=== PATIENT | female | born 1980 | race Caucasian/White ===

== ENCOUNTER → 2018-03-23 13:43 | Outpatient (CLI) | payer OTHER, SELFPAY ==
[2018-03-27 10:39] LABS: HPV Reflexed? NOT INDICATED
== END ==
PROVIDERS: Visit Provider Obstetrics & Gynecology
DX: Z12.4 Encounter for screening for malignant neoplasm of cervix (principal)
CPT/HCPCS: 88175; G0145

== ENCOUNTER → 2018-08-22 17:02 | Outpatient (CLI) | payer OTHER, SELFPAY ==
[2018-08-22 20:19] LABS: Chlamydia Trachomatis by PCR Negative (Negative); Neisserai gonorrhoeae by PCR Negative (Negative); Probe Check PASS; Sample Adequacy Control PASS; Specimen Processing Control PASS
== END ==
PROVIDERS: Visit Provider Obstetrics & Gynecology
DX: Z11.3 Encounter for screening for infections with a predominantly sexual mode of transmission (principal)
CPT/HCPCS: 87491; 87591

== ENCOUNTER → 2018-09-23 15:41 | Outpatient (CLI) | payer OTHER, SELFPAY ==
[2018-09-23 17:56] LABS: Absolute Lymphocyte Count 2.23 X10^3/ul (0.83-4.51); Absolute Neutrophil Count 6.7 X10^3/uL (2.0-7.7); Basophil# 0.02 X10^3/uL; Basophil% 0.2 % (0-1); Hematocrit 39.6 % (37-47); Hemoglobin 13.7 g/dl (12.0-15.0); Lymphocyte # 2.23 X10^3/ul (4.0); Lymphocyte % 23.1 % (19-41); Mean Corp Hgb Conc 34.6 g/gl (32-36); Mean Corpuscular Hgb 31.1 pg (27.0-32.0); Mean Corpuscular Volume 89.8 fL (81-99); Monocyte# 0.64 X10^3/uL; Monocyte% 6.6 % (0-10); Neutrophil # 6.66 X10^3/uL (2.7-7.7); Neutrophil % 68.9 % (47-70); Platelet Count 233 K/mm3 (150-450); RBC Distribution Width CV 12.2 % (11.6-14.6); RBC Distribution Width SD 39.5 fl (35.1-43.9); Red Blood Count 4.41 M/mm3 (4.2-5.4); White Blood Count 9.7 K/mm3 (4.4-11.0)
[2018-09-23 17:58] LABS: Color, Urine Yellow (Yellow); Glucose, Dipstick Normal (Normal); Ketone-Dipstick Negative (Negative); Leukocyte Esterase-Dipstick Negative /ul (Negative); Nitrite-Dipstick Negative (Negative); Occult Blood-Urine Negative /ul (Negative); Protein-Dipstick Negative (Negative); Urine Bilirubin Dipstick Negative (Negative); Urine Clarity Clear (Clear); Urine Urobilinogen Normal (Normal)
[2018-09-23 17:59] LABS: POSITIVE COUNT NO; POSITIVE DIFFERENTIAL NO; POSITIVE MORPHOLOGY NO
[2018-09-23 18:11] LABS: Thyroid Stim Hormone (TSH) 1.17 uIU/mL (0.358-3.74)
[2018-09-23 18:53] LABS: HIV - WCH Non-Reactive (Nonreactive)
[2018-09-26 10:36] LABS: HEPATITIS B SURFACE AG Negative (Negative); Hep C Antibodies <0.1 s/co ratio (0.0-0.9)
[2018-09-29 23:52] LABS: Prenatal RPR NONREACTIVE (NONREACTIVE)
--- OUTSIDE RECORDS SUMMARY | 2018-12-28 06:31 | XMS RPT_ITS ---
:1980 Author Organization OHIP Care Team Providers Name Role Phone Nestor Coffey Attending Unavailable PROVIDER, UNKNOWN Referring Unavailable MELVA [facility] Primary Care Unavailable Katerina Hess Attending Unavailable Arely Donaldson Attending Unavailable Katerina Hess Attending Unavailable PROBLEMS PROBLEMS DATE TYPE CONDITION / CODE ATTENDING STATUS SOURCE 09/23/2018 Unknown Z34.81 - Encounter Katerina Hess for supervision of Community other normal Hospital , first Repository trimester / Z34.81(ICD-10) 08/22/2018 Unknown Z11.3 - Encounter Katerina Hess for screening for Community infections with a Hospital predominantly Repository sexual mode of transmission / Z11.3(ICD-10) 04/08/2018 Admitting Liver disease, ChristophNestor tinajero Active [place] N42 Diagnosis unspecified / System K76.9(ICD-10) Repository 04/08/2018 Admitting [facility]ty (change of[facility] Nestor [facility] Diagnosis liver, not System elsewhere Repository classified / K76.0(ICD-10) 03/23/2018 Unknown Z12.4 - Encounter Arely Donaldson Active Gaurav for screening for Community malignant neoplasm [facility] cervix / Repository Z12.4(ICD-10) PROCEDURES PROCEDURES No Procedure Records FoundRESULTS RESULTS URINALYSIS, ROUTINE Collected: 09/23/2018 Status: F Source: GAURAV (DIPSTICK) 3:45 PM [facility] REPOSITORY Order Comment: How was Urine Obtained? Urine, Random TYPE CODE TESTS RESULT OUT OF RANGE REFERENCE UNITS LAB L400.3000 Yellow COLOR Normal Yellow LAB L400.3050 Clear Normal CLARITY Clear LAB L400.3200 Normal mg/dl Normal GLUCOSE, UR Normal LAB L400.3300 Negative mg/dL Normal BILIRUBIN URINE Negative LAB L400.3400 Negative mg/dl Normal KETONE UR Negative LAB L400.3465 1.002-1.030 Normal SP.GR. DIPSTX 1.030 LAB L400.3550 5.0 - 8.0 pH UR Normal 6.0 LAB L400.3600 Negative mg/dl PROT Normal DIPSTX Negative LAB L400.3700 Normal mg/dl Normal UROBILI Normal LAB L400.3750 Negative Normal NITRITE UR Negative LAB L400.3780 Negative /ul Normal OCCULT BLOOD-UR Negative LAB L400.3800 Negative /ul LEUK Normal ESTERASE Negative Performed By: #### L400.2010 #### [facility] [address] [place], [place], [address] CBC W/DIFF, AUTOMATED Collected: 09/23/2018 Status: F Source: [place]ON STATION 3:45 PM [facility] [place] TYPE CODE TESTS RESULT OUT OF RANGE REFERENCE UNITS LAB L100.1000 4.4-11.0 K/mm3 Normal WBC 9.7 LAB L100.1200 4.2-5.4 M/mm3 Normal RBC 4.41 LAB L100.1300 12.0-15.0 g/dl Normal HGB 13.7 LAB L100.1400 37-47 % Normal HCT 39.6 LAB L100.1500 81-99 fL Normal MCV 89.8 LAB L100.1600 27.0-32.0 pg Normal MCH 31.1 LAB L100.1700 32-36 g/gl Normal MCHC 34.6 LAB L100.1810 11.6-14.6 % Normal RDW CV 12.2 LAB L100.1820 35.1-43.9 fl Normal RDW SD 39.5 LAB L100.1900 150-450 K/mm3 Normal PLT 233 LAB L100.2000 6.2-12.0 fl Normal MPV 11.0 LAB L100.2100 47-70 % Normal NEUT% 68.9 LAB L100.2200 19-41 % Normal LY% 23.1 LAB L100.2300 0-10 % Normal MONO% 6.6 LAB L100.2400 0-5 % Normal EO% 1.0 LAB L100.2500 0-1 % Normal BASO% 0.2 LAB L100.2550 0.0-0.9 % Normal IM GRAN % 0.200 Result Comment: IG% - Immature Granulocytes (promyelocytes, myelocytes and metamyelocytes) > 1% indicates that a LEFT SHIFT is Present. LAB L100.2620 2.0-7.7 X10 3/uL Normal Absolute Neut 6.7 LAB L100.2720 0.83-4.51 X10 3/ul Normal Absolute Lymph 2.23 Performed By: #### L100.0100 #### [facility] [address] [place], [address] THYROID STIM HORMONE Collected: 09/23/2018 Status: F Source: IRON STATION (TSH) 3:45 PM [facility] [place] TYPE CODE TESTS RESULT OUT OF RANGE REFERENCE UNITS LAB L501.9520 0.358-3.74 uIU/mL Normal TSH 1.17 Performed By: #### L501.9520 #### [facility] [facility] [place], [place], [id number] T AND S-NO Collected: 09/23/2018 Status: F Source: IRON STATION CHARGE W/PNP 3:45 PM [facility] [place] Order Comment: Reason for Type AND Screen/Red Cells: Surgery? N TYPE CODE TESTS RESULT OUT OF RANGE REFERENCE UNITS LAB B10.0800 A Normal BLOOD POSITIVE TYPE GEL LAB B100.4050 Normal Ab SCREEN NEGATIVE GEL Performed By: #### B100.7550 #### [facility] [address] [facility] [place], [place], [address] RUBELLA IGG Collected: 09/23/2018 Status: F Source: IRON STATION 3:45 PM [facility] [place] TYPE CODE TESTS RESULT OUT OF RANGE REFERENCE UNITS LAB L509.4000 IU/mL Normal Rubella IgG 61.0 Result Comment: Antibody results Interpretation of Immune Status < 5 IU/ml Presumed Non-immune 5 - < 10 IU/ml Equivocal > or = 10 IU/ml Presumed Immune Performed By: #### L509.4000, L3890.6005 #### [facility] [address] [place], [address] HIV - WCH Collected: 09/23/2018 Status: F Source: GAURAV 3:45 PM [facility] [place] TYPE CODE TESTS RESULT OUT OF RANGE REFERENCE UNITS LAB L3890.6005 Nonreactive Normal HIV - [facility] Non-Reactive Performed By: #### L509.4000, L3890.6005 #### [facility] [address] [place], [address] HEPATITIS B SURFACE Collected: 09/23/2018 Status: F Source: GAURAV AG 3:45 PM [facility] [place] TYPE CODE TESTS RESULT OUT OF RANGE REFERENCE UNITS LAB L3100.0400 Negative Normal HB Negative SURF AG Result Comment: Performed at: [facility] [address] [id number] Potline Monitor: Yrody Cleveland PhD, Phone: [phone] Performed By: #### L3100.0390, L3100.0625 #### [facility] (refer to report for specific site) refer to report for address and phone number HEPATITIS C ANTIBODIES Collected: 09/23/2018 Status: F Source: GAURAV 3:45 PM [facility] [place] TYPE CODE TESTS RESULT OUT OF RANGE REFERENCE UNITS LAB L3100.0650 0.0-0.9 s/co ratio Normal HEP C AB <0.1 Result Comment: Negative: < 0.8 Indeterminate: 0.8 - 0.9 Positive: > 0.9 The CDC recommends that a positive HCV antibody result be followed up with a HCV Nucleic Acid Amplification test (713578). Performed By: #### L3100.0390, L3100.0625 #### [facility] (refer to report for specific site) refer to report for address and phone number RPR Collected: 09/23/2018 Status: F Source: GAURAV 3:45 PM [facility] [place] TYPE CODE TESTS RESULT OUT OF REFERENCE UNITS RANGE LAB L700.5100 NONREACTIVE Normal RPR NONREACTIVE Performed By: #### L700.5100 #### [facility] [address] [place], [place], [address] CT/NG W[facility] BY PCR Collected: 08/22/2018 Status: F Source: GAURAV 2:00 PM [facility] [place] TYPE CODE TESTS RESULT OUT OF RANGE REFERENCE UNITS LAB L8200.2100 Negative Normal Chlam Negative Trac PCR LAB L8200.2200 Negative Normal NG by Negative PCR Performed By: #### L8200.2000 #### [facility] [address] [place], [address] US ABDOMEN COMPLETE Observed: 04/08/2018 Status: F Source: [place] 11:24 AM SYSTEM REPOSITORY Patient Name: YOSELYN REYNOLDS Ultrasound Exam Date/Time 04/08/2018 08:45:00 EDT Exam US Abdomen Complete Ordering Physician MD LUZ MARIA, [facility] Accession Number [id number] CPT4 Codes 37238 () Reason For Exam liver lesion Report EXAMINATION: Ultrasound of the abdomen. COMPARISON: 10/02/2009; correlation with CT scan of 09/30/2017. REASON FOR STUDY: Hepatic lesion. TECHNIQUE: Real-time claros scale as well as supplemental color and spectral doppler imaging was performed transabdominally. FINDINGS: The liver is diffusely echogenic. A fairly well-circumscribed hyperechoic lesion measuring 2.7 cm in widest dimension is observed peripherally in the left hepatic lobe. The lesion exhibits posterior acoustic enhancement. The pancreatic tail is obscured by acoustic shadowing. The remainder of this pancreas and spleen appear normal. There is normal renal echo complex bilaterally. The right and left kidneys measure 10.6 cm and 10.4 cm in length, respectively. The biliary tree is not dilated and common duct measures 2 mm in diameter. The gallbladder appears normal and contains no abnormal echoes. No free intraperitoneal fluid is noted. The visualized abdominal aorta and inferior vena cava appear normal. CONCLUSIONS: 1. Right hepatic lesion likely representing a hemangioma correlating with recent CT scan findings. With the assumption that this represents the same lesion as in this study of 10/02/2009, there has been interval enlargement. 2. Hepatic steatosis. Report Dictated on Final Dictated: 04/08/2018 11:24 am Dictating Physician: MD REY B NELSON Signed Date and Time: 04/08/2018 11:36 am Signed by: MD REY B NELSON Transcribed Date and Time: 04/08/2018 11:24 PAP I-G W/RFX HRHPV Collected: 03/23/2018 Status: F Source: IRON STATION 9:52 AM [facility] [place] Order Comment: CYTOLOGY INFORMATION: - CLINICAL INFORMATION: - DATE LMP/MENOPAUSE: 02/23/18 LMP - COLLECTION VIAL: Thin Prep Vial - DIRECTOR OF TRANSPORTATION SOURCE: CERVICAL/ENDOCERVICAL - COLLECTION TECHNIQUE: BRUSH/SPATULA Specimen Comment: [id number] Specimen Comment: No. of containers..01 ThinPrep Vial TYPE CODE TESTS RESULT OUT OF RANGE REFERENCE UNITS LAB L7400.0800 . Normal DIAGN Comment Result Comment: NEGATIVE FOR INTRAEPITHELIAL LESION AND MALIGNANCY. LAB L7400.0900 . Normal ADEQ Comment Result Comment: Satisfactory for evaluation. No endocervical component is identified. LAB L7400.1400 . Normal PERFORM Comment Result Comment: Jodi Mederos, Insurance Agent (ASCP) LAB L7400.2575 . Normal TEST METHOD Comment Result Comment: This liquid based ThinPrep(R) pap test was screened with the use of an image guided system. LAB L7400.2600 . Normal . COMM LAB L7400.2700 . Normal PAPSMR Comment Result Comment: The Pap smear is a screening test designed to aid in the detection of premalignant and malignant conditions of the uterine cervix. It is not a diagnostic procedure and should not be used as the sole means of detecting cervical cancer. Both false-positive and false-negative reports do occur. LAB L7400.2800 . Normal HPV RFLX Comment Result Comment: The HPV DNA reflex criteria were not met with this specimen result therefore, no HPV testing was performed. Performed at: [facility] [address] [id number] Potline Monitor: Dina Reed MD, Phone: [phone] Performed By: #### L7400.0350 #### [facility] (refer to report for specific site) refer to report for address and phone number ALLERGIES ALLERGIES No Allergies Records FoundENCOUNTERS ENCOUNTERS ADMIT/DISCHARGE ACCOUNT NUMBER ADMITTING ENCOUNTER LOCATION SOURCE CLASS 09/23/2018 [id number] Ambulatory [facility] ding:WOBLAB Repository 08/22/2018 [id number] Ambulatory [facility] ding:LABSPEC Repository 04/08/2018 [id number] Ambulatory [facility] Repository 03/23/2018 [id number] Ambulatory [facility] ding:LABSPEC Repository PAYERS PAYERS ENCOUNTER GUARANTOR PAYER SUBSCRIBER SOURCE 09/23/2018 Yoselyn Stephenson88 Primary Yoselyn MankDOB: Pinola Heimbaugh Insurance:MEDICAL [id number] [facility] [address]Zrs: (330) Number: Repository [phone] () [id number] Date:[id number] [address] [place] [id number]: 09/23/2018 Secondary NOT GIVENUNK [place] Insurance:SELF PAY [facility] Number: Effective Repository Date:2018-09-23 08/22/2018 Yoselyn Stephenson88 Primary Yoselyn MankDOB: Gaurav Heimbaugh Insurance:MEDICAL [id number] [facility] [address]Fas: [phone]) Number: Repository [phone] () [id number] Date:[id number] [address] [place], [place] [id number]: 08/22/2018 Secondary NOT GIVENUNK [place] Insurance:SELF PAY [facility] Number: Effective Repository Date:2018-08-22 04/08/2018 Yoeslyn E Primary [place] [facility] BrykDOB: Insurance:Medical BrykDOB: System [id number]: Effective Kayenta Date: [place], [place] [address]Ldr: () 03/23/2018 Yoselyn Roa Primary Yoselyn MankDOB: Pinola Heimbaugh Insurance:MEDICAL [id number] [address]Gkx: (330) Number: Repository [phone] () [id number] Date:[id number] [address] [place], [place] [id number]: 03/23/2018 Secondary NOT GIVENUNK [place] Insurance:SELF PAY [facility]: Effective Repository Date:2018-03-23
== END ==
PROVIDERS: Visit Provider Obstetrics & Gynecology
DX: Z34.81 Encounter for supervision of other normal pregnancy, first trimester (principal)
CPT/HCPCS: 36415; 81002; 84443; 85025; 86703; 86762; 86803; 87340

== ENCOUNTER → 2019-01-23 08:55 | Outpatient (CLI) | payer OTHER, SELFPAY ==
[2019-01-23 10:40] LABS: Hematocrit 38.5 % (37-47); Hemoglobin 12.7 g/dl (12.0-15.0); Mean Corpuscular Hgb 30.7 pg (27.0-32.0); Mean Platelet Vol. 10.2 fl (6.2-12.0); Platelet Count 202 K/mm3 (150-450); RBC Distribution Width CV 13.2 % (11.6-14.6); RBC Distribution Width SD 44.8 fl (35.1-43.9); Red Blood Count 4.14 M/mm3 (4.2-5.4); Scan Indicated on CBC? Y/N NO; White Blood Count 12.3 K/mm3 (4.4-11.0)
[2019-01-23 10:45] LABS: Glucose Challenge Gest 1H 50g 141 mg/dL (70-140)
== END ==
PROVIDERS: Visit Provider Obstetrics & Gynecology
DX: Z34.83 Encounter for supervision of other normal pregnancy, third trimester (principal)
CPT/HCPCS: 36415; 82950; 85027

== ENCOUNTER → 2019-01-31 06:57 | Outpatient (CLI) | payer OTHER, SELFPAY ==
[2019-01-31 08:16] LABS: Glucose GTT-Gestation. Fasting 92 mg/dL (<105)
[2019-01-31 09:38] LABS: Glucose GTT-Gestational 1 Hr 156 mg/dL (<190)
[2019-01-31 11:50] LABS: Glucose GTT-Gestational 2 Hr 119 mg/dL (<165)
[2019-01-31 11:52] LABS: Glucose GTT-Gestational 3 Hr 99 L (<145)
== END ==
PROVIDERS: Referring Provider Obstetrics & Gynecology; Visit Provider Obstetrics & Gynecology
DX: O24.419 Gestational diabetes mellitus in pregnancy, unspecified control (principal)
CPT/HCPCS: 36415; 82951; 82952

== ENCOUNTER → 2019-03-13 | Outpatient (CLI) | payer OTHER, SELFPAY | END | disposition home or self-care (01) | LOC: LABSPEC 14:11 | PROVIDERS: Visit Provider Obstetrics & Gynecology | DX: Z36.85 Encounter for antenatal screening for Streptococcus B (principal) | CPT/HCPCS: 87081 ==

== ENCOUNTER 2019-04-20 19:00 | Inpatient (IN) | payer OTHER, SELFPAY ==
[2019-04-20 19:40] VITALS: BMI 46.0
[2019-04-20] MEDS: Lactated Ringers 1,000 ML 50 ML IV (19:45)
[2019-04-20 19:57] LABS: Absolute Lymphocyte Count 2.43 X10^3/ul (0.83-4.51); Absolute Neutrophil Count 8.4 X10^3/uL (2.0-7.7); Basophil# 0.02 X10^3/uL; Basophil% 0.2 % (0-1); Eosinophil# 0.16 X10^3/uL; Eosinophils% 1.3 % (0-5); Hematocrit 38.9 % (37-47); Lymphocyte # 2.43 X10^3/ul (4.0); Lymphocyte % 20.5 % (19-41); Mean Corp Hgb Conc 33.4 g/gl (32-36); Mean Corpuscular Hgb 30.2 pg (27.0-32.0); Mean Corpuscular Volume 90.5 fL (81-99); Mean Platelet Vol. 12.2 fl (6.2-12.0); Monocyte# 0.88 X10^3/uL; Monocyte% 7.4 % (0-10); Neutrophil # 8.35 X10^3/uL (2.7-7.7); Neutrophil % 70.3 % (47-70); POSITIVE COUNT NO; POSITIVE DIFFERENTIAL NO; POSITIVE MORPHOLOGY NO; Platelet Count 138 K/mm3 (150-450); RBC Distribution Width CV 13.7 % (11.6-14.6); RBC Distribution Width SD 44.9 fl (35.1-43.9); White Blood Count 11.9 K/mm3 (4.4-11.0)
--- NOTE | 2019-04-20 20:20 | HP.PCM_ITS ---
- Problem List (1) 41 weeks gestation of Status: Acute History Date of Admission: 04/20/19 Final NATALY: 04/12/19 Final NATALY Source: US <20 weeks Gestational age: 41 Weeks and 1 Days History of this : This is a 38 year-old, G [], P [], at 41 weeks gestational age. Medical History: Medical History (Last Updated 04/20/19 @ 20:21 by Drea Yarbrough MD) Mild intermittent asthma J45.20 Surgical History: Surgical History (Last Updated 04/20/19 @ 20:22 by Drea Yarbrough MD) No history of previous surgery Allergies No Known Allergies Allergy (Verified 04/20/19 20:00) Home Medications: Home Medications Doxylamine Succinate [Unisom] 25 mg PO DAILY PRN PRN 04/20/19 Pantoprazole Sodium [Protonix] 20 mg PO DAILY 04/20/19 Vits [Prenatabs FA] 1 tab PO DAILY 04/20/19 Smoking Status: Never smoker Alcohol: None Number of Fetus(es): 1 Heart Tracin, moderate variability, accelerations present, no decelerations TOCO Analysis: 2 per 10 minutes History Past Pregnancies: Past Pregnancies Delivery Date Name GA/Weeks Outcome Route Weight Gender Labor Length Anesthesia Delivery Location Provider FOB Labs: Labs 04/20/19 19:45 WBC 11.9 H RBC 4.30 Hgb 13.0 Hct 38.9 MCV 90.5 MCH 30.2 MCHC 33.4 RDW 13.7 RDW Differential 44.9 H Plt Count 138 L MPV 12.2 H Immature Gran % (Auto) 0.300 Neut % (Auto) 70.3 H Lymph % (Auto) 20.5 Maverick % (Auto) 7.4 Eos % (Auto) 1.3 Baso % (Auto) 0.2 Absolute Neuts (auto) 8.4 H Absolute Lymphs (auto) 2.43 Total Counted Not Reportable 1 hour GTT 141 mg/dL, 3-hour GTT 13-915-123-99 mg/dL RPR nonreactive Hepatitis C antibody negative Hepatitis B surface antigen negative HIV nonreactive Rubella IgG immune A+, antibody negative gonorrhea negative Chlamydia negative Expected Delivery Method: Spontaneous Vaginal Describe any other labor & delivery plans:: Cytotec for induction of labor Number of Visits: 13 Review of Systems Gynecological: Reports: - - Denies contractions. + FM. Denies: Vaginal bleeding Physical Exam Vitals: avss General: Alert, Oriented x3, Cooperative, No apparent distress HEENT: Atraumatic, Normocephalic Cardiovascular: Regular rate, Regular Rhythm Lungs: Normal air movement Abdomen: Soft, Non Tender, Non-Distended, Obese Neurological: Neuro grossly intact Estimated gestational size: Appropriate for gestational size Presentation: Cephalic Cervix Dilation (cm): 0 Station: -3 Effacement (%): 0 - per RN Exam Assessment/Plan All Active Problems 41 weeks gestation of (Acute) This is a 38 year-old, G [1], P [], at 41 1/7weeks gestational age, Cat I FHR US 04/18/19 - EFW 7#7oz Bedside US today - cephalic, OP Cytotec
[2019-04-20] MEDS: 0.9% Saline Lock 10 ML Syringe IV ×2 (21:19→23:28)
[2019-04-21] MEDS: Lactated Ringers 1,000 ML 50 ML IV ×2 (00:26→16:44)
[2019-04-21 00:47] LABS: ALB/GLOB Ratio 0.8 RATIO (0.9-2.4); AST(SGOT) 19 U/L (15-37); Alanine Aminotransfer ALT/SGPT 16 U/L (13-56); Albumin, Serum 2.4 g/dL (3.2-5.0); Alkaline Phosphatase 167 U/L (45-117); Anion Gap 9 (5-15); BUN 13 mg/dL (7-18); BUN/Creat Ratio 16.1 RATIO (10-20); Calcium,Total 9.1 mg/dL (8.5-10.1); Chloride 109 mmol/L (98-107); Creatinine, Serum 0.81 mg/dL (0.55-1.02); EST Glomerular Filtration Rate 85 mL/min (>60); Est Glom Filt Rate - Afr Amer 103 mL/min (>60); Estimated Creatinine Clearance 75.94 ml/min; Globulin 3.1 g/dL (2.2-4.2); Glucose 77 mg/dL (74-106); Potassium 3.9 mmol/L (3.5-5.1); Protein, Total 5.5 g/dL (6.4-8.2); Sodium Level 140 mmol/L (136-145)
[2019-04-21 00:54] LABS: Uric Acid 5.4 mg/dL (2.6-6.0)
[2019-04-21 00:56] LABS: Protein, Urine (Random) < 6.0 mg/dL (<11.9)
[2019-04-21] MEDS: Acetaminophen 325 MG Tablet PO ×2 (05:33→12:10)
--- NOTE | 2019-04-21 07:16 | PN_ITS ---
Progress Note INDUCTION of labor 41 2/7 wk Narrow arch Feeling some back pain. AVSS S/P two doses of cytotec only Held one dose 2/2 UCs present and FHR EFM 110-120s avg variability Accels. Occasional mild variable UCs q 3-6+ mins CX: high. dimple. NARROW ARCH A/P: 41 2/7 wk Cytotec given. D/C Cytotec. Plan to place douglas bulb with s peculum exam. Pitocin to start approx 10 am. (4 hr after last cytotec)
[2019-04-21] MEDS: Oxytocin 30 units/NS 500 ml 30 UNITS/500 ML IV.SOLN IV (10:14)
[2019-04-21] MEDS: 0.9% Normal Saline 100 ML IV.SOLN. INTRA-UTER (13:00)
[2019-04-21] MEDS: Nalbuphine 10 MG/ML Ampul IV (16:50)
--- NOTE | 2019-04-21 17:03 | PCM.PN.BLA ---
Progress Note 41 27 wk LATE entry. induction of labor. from 1300 visit Feeling some cramping, but better than prior. no back pain at present AVSS Pitocin induction after 2 doses Cytotec. EFM category I UCs irregular CX: L/Th/Closed Unable to place Dewitt bulb with either speculum exam (not tolerated and cervix not visible) or by manual exam. A/P: 41 2/7 wk induction Very unfavorable cervix. narrow arch and high BMI. Advised will continue pitocin consider AROM or repeat try at Dewitt bulb at 1700 or so
--- NOTE | 2019-04-21 19:54 | PCM.PN.BLA ---
Progress Note 41 2/7 wk induction Cytotec last night. to Pitocin all day. Attempted Dewitt bulb placement. but unable to see cervix with speculum or guide through cervix with exam Pitocin at 18 mIU/min S/p Nubain for pain. Able to sleep Discussed findings with pt. CX: softer, VERY high, narrow arch. Vtx unengaged. Closed EFM 110-120s with accels. UCs q 2-4+ mins A/P: 41 2/7 wk induction failed induction thus far. vtx high and cervix closed. softer, Advised of options: 1.) take break from induction. Shower, eat reg dinner. resume Cytotec overnight. Ambien prn for sleep 2.) Proceed to primary C/S After time to consider options; elects to take break and resume induction Cytotec overnight after meal and shower IV Pitocin stopped. IV to saline lock May shower Reg diet tonight as EFM reassuring
[2019-04-21] MEDS: 0.9% Saline Lock 10 ML Syringe IV ×2 (20:01→23:26)
[2019-04-21] MEDS: Pantoprazole Sodium 20 MG Tablet PO (22:41)
[2019-04-21 22:45] VITALS: PULSE 104; RESP 18; O2SAT 97
[2019-04-22] VITALS (20 sets, daily range): BP systolic 124–144; BP diastolic 61–86; PULSE 94–107; RESP 16–18; TEMP 36.1–36.7; O2SAT 95–100
--- NOTE | 2019-04-22 08:11 | PCM.PN.BLA ---
Progress Note INDUCTION OF LABOR 41 3/7 wk Admitted PM on 04/20/19 S/P second night of cytotec and one day of pitocin. Unable to place douglas bulb for induction 2/2 vtx very high, narrow arch. AVSS EFM category I tracing, with periods of dec variability. Accels noted Irregular UCs. CX: high, barely able to reach. Closed. Soft. Unable to determine effacement. NARROW ARCH A/P: 41 3/7 wk induction postdates. no progress noted. Very narrow arch and no descent. Advised may continue to attempt pitocin induction again all day today or proceed to primary C/S FAILED INDUCTION Ready now to proceed with primary C/S
[2019-04-22] MEDS: Sodium Citrate/Citric Acid 30 ML UDC PO (08:16)
--- NOTE | 2019-04-22 08:16 | DCINST_ITS ---
Discharge Diet: No Restrictions Discharge Activity: May not drive while taking narcotic pain medications., May Shower, May Take a Tub Bath May resume sexual activity in: 4-6 weeks Lifting Restrictions: 20 pounds Additional Activity Instructions:: Nothing in the vagina for 4-6 weeks. You may return to work/school in 6 weeks. Change Dressing in (Days):: 7 Remove Dressing in (days):: 7 Cleanse incision/area with: Soap & Water, Keep Dressing Clean & Dry Additional Instructions: If you experience any of the following, contact your healthcare provider. * Bleeding that soaks a pad every hour for 2 hours * Fever 100.4 or higher * Unrelieved incision or abdominal pain * Swelling, redness, discharge or bleeding from your incision or episiotomy site * Your incision begins to separate * Problems urinating (including inability to urinate or burning while urinating). * Visual changes * Severe headache * Flu-like symptoms * Pain or redness in one of both of your breasts * Pain, warmth, tenderness or swelling in your legs, especially the calf area * Frequent nausea and vomiting * Symptoms of depression or anxiety If you experience any of the following, call 911 or go to the nearest Emergency Room. * Chest pain * Problems breathing * Seizure activity * Partial or complete paralysis of a body part, slurred speech, weakness or drooping of the face, or a sudden inability to walk or hold your balance Allergies/Adverse Reactions: Allergies No Known Allergies Allergy (Verified 04/20/19 20:00) Medications to take at Discharge Doxylamine Succinate [Unisom] 25 mg PO DAILY PRN PRN 04/20/19 Pantoprazole Sodium [Protonix] 20 mg PO DAILY 04/20/19 Vits [Prenatabs FA] 1 tab PO DAILY 04/20/19 Docusate Sodium [Colace] 100 mg PO BID #30 capsule 04/22/19 Naproxen [Naprosyn] 250 - 500 mg PO TID PRN PRN #30 tablet 04/22/19 Oxycodone [Oxyir] 5 mg PO Q6H PRN PRN 7 Days #20 tablet 04/22/19 Polyethylene Glycol 3350 [Miralax] 17 gm PO DAILY PRN #14 packet 04/22/19 The following prescriptions were given: Docusate Sodium [Colace] 100 mg PO BID #30 capsule Polyethylene Glycol 3350 [Miralax] 17 gm PO DAILY PRN #14 packet PRN Reason: Constipation Naproxen [Naprosyn] 250 - 500 mg PO TID PRN PRN #30 tablet PRN Reason: Mild-Mod Pain (1-5/10) Oxycodone [Oxyir] 5 mg PO Q6H PRN PRN 7 Days #20 tablet PRN Reason: Mod-Severe Pain (4-07/20) Follow-Up: Call to make an appointment with your doctor for an incision check in 1-2 weeks. You will also need a 6 week post- follow up appointment. Test results from this visit will be discussed in further detail at your follow- up appointment, if applicable. Please Follow Up With: Katerina Hess MD - [phone] When: Call to make an appointment for an incision check in 2 weeks. Primary Care Physician: Care Physician,No Primary [Primary Care Provider] - Proposed Discharge Date: 04/25/19
[2019-04-22] MEDS: Lactated Ringers 1,000 ML 50 ML IV (08:17)
[2019-04-22] MEDS: Oxytocin 30 units/NS 500 ml 30 UNITS/500 ML IV.SOLN 167 UNITS IV (08:57)
--- NOTE | 2019-04-22 09:19 | OP.PCM_ITS ---
Report of Operation Date of Procedure: 04/22/19 Pre-Operative Diagnosis: 41 3/7 wk failed induction Post-Operative Diagnosis: same Surgery/Procedure Performed:: Primary C section Description of Surgical Findings:: Hernández viable male VTX unengaged in maternal pelvis. Clear fluid at amniotomy. Wt 8# 7 oz. Ap 9/9 normal ovaries , fallopian tubes, uterus. Small paratubal cyst on L side. Drained. Anesthesiologist: Jroi Ca Specimen's removed: Placenta Drains: Dewitt Estimated Blood Loss (mL): 600 Fluids Replaced: LR - Complications none. Delivery Indications: FAILED induction 41 3/7 wk no descent, no dilation. Indications for : Failed Induction Description of Procedure: Narrative account: After the risks, benefits and alternatives of the procedure were reviewed with the patient, informed consent was obtained. The patient was taken to the Operating room with an IV running. She was positioned in a seated position on the operating table and a spinal was placed. Once the spinal was placed she was repositioned on the operating table and frog legged for Dewitt placement the repositioned again to dorsal urine position with leftward displacement of the uterus and prepped and draped in the usual sterile fashion. Once the spinal was deemed adequate, a Pfannenstiel skin incision was created using the knife. The incision was carried down to the rectus fascia using the knife. The fascia was nicked in the midline. The fascial incision was extended bilaterally using curved Rowe scissors. The superior aspect of the fascial incision was grasped with Obed clamps and tented up and the underlying rectus abdominal muscles were dissected free. In a similar manner, the inferior aspect of the facial incision was grasped with Obed clamps tented up and the underlying rectus abdominal muscles were dissected free. The rectus abdominis muscles were in the midline and the peritoneum was identified and entered by blunt dissection high in the incision. The peritoneum was stretched laterally and a bladder blade was inserted. A bladder flap was created along the lower uterine segment with Metzenbaum scissors . The uterine incision was then created using Metzenbaum scissors. The operators fingertips were used to extend the uterine incision by blunt dissection in a caudad- cephalad orientation . Clear fluid was noted at amniotomy. The vertex was then delivered atraumatically through the incision. The OP and nares were bulb suctioned on the abdomen. The shoulders delivered easily . The cord clamped x two and cut. And the infant was handed off to the nurse awaiting delivery after briefly showing him to his parents. The baby had good tone and a spontaneous vigorous cry. The placenta was then delivered. The uterus was exteriorized and cleared of clots and debris . The uterine incision was repaired with 1 Vicryl in a running locked fashion. A second imbricating layer of 1 Monocryl was placed. Additional horizontal mattress stitch of 1 Vicryl was placed at the midportion fo the incision for hemostasis. Bovie cautery was used to treat any bleeding areas . Excellent hemostasis was noted. At this point the uterus was returned to the abdominal cavity. The gutters were cleared of clots and debris and the incision at the uterus was inspected. Excellent hemostasis was noted. The peritoneal edges were reapproximated with a running nonlocked 1 Vicryl The rectus abdominis muscles were reapproximated in the midline with a series of vertical mattress stitches of 1 Vicryl. Excellent hemostasis was noted at the subfascial space The fascia was closed in a running nonlocked fashion with a Stratofix. The Subcutaneous fatty tissue was Bovie cauterized as needed for hemostasis. This layer was then reapproximated in a single layer closure of running 3-0 Vicryl to eliminate space. The skin edges were closed in a Subcuticular stitch of 4-0 Monocryl. The incision was cleansed. Cavilon, Steristrips, and Mepilex dressing were applied to the skin . The patient was then transferred to the recovery room bed in stable condition after tolerating the procedure well. Sponge, lap, needle and instrument counts correct times two. Medications given preop and intraoperatively included: Ancef 3 gm IV was given marble installation helper to the operating room. The patient also received Pitocin given IV after cord clamp, and Toradol 30 mg IV times one. For a complete listing of medications given preop and intraoperatively, please see the anesthesia record. - Complications none - Admit VTE Documentation Amniotic Membrane Rupture Type: Artificial Amniotic Fluid Description: Clear Drain: Dewitt to straight drain Fluids Replaced: LR Cord Entanglement: None Cord Vessel Description: 3 Vessels Gender: Male (1 minute): 9 (5 minute): 9 Delayed cord clamping: No Pre-op Antibiotic Given: - - Ancef 3 gm IV - Admit VTE Documentation VTE Present on Admission: No VTE Mechan Device Prophylaxis: SCD's VTE Pharm Prophylaxis ordered?: Yes
[2019-04-22] MEDS: Ketorolac 15 MG/ML Vial 30 MG IV ×3 (09:30→21:11)
[2019-04-22] MEDS: Ondansetron 4 MG/2 ML Vial IV (13:09)
[2019-04-22] MEDS: 0.9% Saline Lock 10 ML Syringe IV (15:39)
[2019-04-22] MEDS: Lactated Ringers 1,000 ML 100 ML IV (15:53)
[2019-04-22] MEDS: DiphenhydrAMINE 25 MG Capsule PO (17:56)
[2019-04-23] VITALS (7 sets, daily range): BP systolic 137–141; BP diastolic 70–86; PULSE 86–108; RESP 16–18; TEMP 36.4–36.9; O2SAT 96–99
[2019-04-23] MEDS: Lactated Ringers 1,000 ML 100 ML IV (02:47)
[2019-04-23] MEDS: Ketorolac 15 MG/ML Vial 30 MG IV ×4 (02:48→21:58)
[2019-04-23 05:10] LABS: Hemoglobin 11.7 g/dl (12.0-15.0); Mean Corp Hgb Conc 33.4 g/gl (32-36); Mean Corpuscular Hgb 30.3 pg (27.0-32.0); Mean Corpuscular Volume 90.7 fL (81-99); Mean Platelet Vol. 12.1 fl (6.2-12.0); Platelet Count 78 K/mm3 (150-450); RBC Distribution Width CV 13.7 % (11.6-14.6); RBC Distribution Width SD 44.2 fl (35.1-43.9); Red Blood Count 3.86 M/mm3 (4.2-5.4); Scan Indicated on CBC? Y/N NO; White Blood Count 13.7 K/mm3 (4.4-11.0)
[2019-04-23] MEDS: Senna/Docusate Sodium 1 Tablet PO (08:13)
[2019-04-23] MEDS: Acetaminophen 500 MG Tablet 1000 MG PO ×2 (08:13→18:08)
--- NOTE | 2019-04-23 08:19 | PCM.PN.OB ---
Patient Problems: Active and Suspected Problems (Last Updated 04/20/19 @ 20:21 by Drea Yarbrough MD) 41 weeks gestation of (Acute) Subjective: In shower/bathroom. unable to round twice - Physical Exam Vital Signs Temp Pulse Resp BP Pulse Ox 97.5 F L 105 H 18 141/85 H 99 04/23/19 04:25 04/23/19 06:24 04/23/19 06:24 04/23/19 04:25 04/23/19 06:24 Oxygen Delivery Method Room Air Weight: 114.305 kg Body Mass Index (BMI) 46.0 Intake and Output for Last 24 Hours 04/21/19 04/22/19 04/23/19 23:59 23:59 23:59 Intake Total 3852 / 3852 4751 / 4751 651 / 651 Output Total 2450 / 2450 3025 / 3025 2750 / 2750 Balance 1402 / 1402 1726 / 1726 -2099 / -2099 Laboratory Tests Past 24 Hrs 04/23/19 04:35 WBC 13.7 H RBC 3.86 L Hgb 11.7 L Hct 35.0 L MCV 90.7 MCH 30.3 MCHC 33.4 RDW 13.7 RDW Differential 44.2 H Plt Count 78 L MPV 12.1 H Medical Necessity - Tobacco Use Smoking Status: Never smoker Assessment/Plan All Active Problems (Last Updated 04/20/19 @ 20:21 by Drea Yarbrough MD) 41 weeks gestation of (Acute)
[2019-04-23] MEDS: 0.9% Saline Lock 10 ML Syringe IV ×2 (10:14→15:05)
--- NOTE | 2019-04-23 11:58 | PCM.PN.OB ---
Patient Problems: Active and Suspected Problems (Last Updated 04/20/19 @ 20:21 by Drea Yarbrough MD) 41 weeks gestation of (Acute) Subjective: POD#1 Failed induction narrow arch. 41 3/7 wk EGA Doing well. Pain control adequate. up to bathroom already. OOB - Physical Exam General: Alert, Oriented x3, Cooperative, No apparent distress HEENT: Atraumatic, EOMI Neck: Supple Abdomen: Soft - fundus firm NT inferior to umbilicus Skin: Incision - Mepilex CDI. Neurological: Cranial nerves II-XII grossly intact Psych/Mental Status: Normal Affect Vital Signs Temp Pulse Resp BP Pulse Ox 97.5 F L 95 16 138/86 H 96 04/23/19 08:20 04/23/19 08:20 04/23/19 08:20 04/23/19 08:20 04/23/19 08:20 Oxygen Delivery Method Room Air Weight: 114.305 kg Body Mass Index (BMI) 46.0 Intake and Output for Last 24 Hours 04/21/19 04/22/19 04/23/19 23:59 23:59 23:59 Intake Total 3852 / 3852 4751 / 4751 651 / 651 Output Total 2450 / 2450 3025 / 3025 2750 / 2750 Balance 1402 / 1402 1726 / 1726 -2099 / -2099 Laboratory Tests Past 24 Hrs 04/23/19 04:35 WBC 13.7 H RBC 3.86 L Hgb 11.7 L Hct 35.0 L MCV 90.7 MCH 30.3 MCHC 33.4 RDW 13.7 RDW Differential 44.2 H Plt Count 78 L MPV 12.1 H Medical Necessity - Tobacco Use Smoking Status: Never smoker Assessment/Plan All Active Problems (Last Updated 04/20/19 @ 20:21 by Drea Yarbrough MD) 41 weeks gestation of (Acute) POD#1 Primary C/S for failed inductoin Stable postop. Inc diet and activity as tolerated. Begin po meds. D/C douglas for voiding trial today Continue care. #2) thrombocytopenia Repeat CBC AM 04/24/19 Hold Lovenox.
[2019-04-24 01:59] VITALS: BP 136/82; PULSE 91; RESP 18; TEMP 36.3
[2019-04-24] MEDS: 0.9% Saline Lock 10 ML Syringe IV (02:34)
[2019-04-24] MEDS: Ketorolac 15 MG/ML Vial 30 MG IV (02:34)
[2019-04-24 06:14] LABS: Hematocrit 33.3 % (37-47); Hemoglobin 10.9 g/dl (12.0-15.0); Mean Corp Hgb Conc 32.7 g/gl (32-36); Mean Corpuscular Hgb 30.1 pg (27.0-32.0); Mean Platelet Vol. 10.1 fl (6.2-12.0); Platelet Count 72 K/mm3 (150-450); RBC Distribution Width SD 45.6 fl (35.1-43.9); Red Blood Count 3.62 M/mm3 (4.2-5.4); White Blood Count 12.3 K/mm3 (4.4-11.0)
[2019-04-24 06:20] LABS: Scan Indicated on CBC? Y/N NO
[2019-04-24] MEDS: Senna/Docusate Sodium 1 Tablet PO (07:54)
[2019-04-24] MEDS: Acetaminophen 500 MG Tablet 1000 MG PO ×2 (07:54→18:37)
[2019-04-24 08:22] VITALS: BP 143/83; PULSE 93; RESP 18; TEMP 36.1
--- NOTE | 2019-04-24 08:51 | PCM.PN.OB ---
Patient Problems: Active and Suspected Problems (Last Updated 04/20/19 @ 20:21 by Drea Yarbrough MD) 41 weeks gestation of (Acute) Subjective: POD#2 Primary C/S Failed induction Doing OK Aware she could go home today. Wants to stay until tomorrow. Minimal bleeding, senior sharepoint developer than prior. Pain control adequate. Nursing. - Physical Exam General: Alert, Oriented x3, Cooperative, No apparent distress HEENT: Atraumatic Abdomen: Soft - Fundus firm minimally tender and inferior to umbilicus Difficult to palpate 2/2 BMI Skin: Incision - Silver mepilex CDI. Psych/Mental Status: Normal Affect Vital Signs Temp Pulse Resp BP Pulse Ox 97.0 F L 93 18 143/83 H 97 04/24/19 08:22 04/24/19 08:22 04/24/19 08:22 04/24/19 08:22 04/23/19 13:42 Oxygen Delivery Method Room Air Weight: 114.305 kg Body Mass Index (BMI) 46.0 Intake and Output for Last 24 Hours 04/22/19 04/23/19 04/24/19 23:59 23:59 23:59 Intake Total 4751 / 4751 651 / 651 Output Total 3025 / 3025 3600 / 3600 Balance 1726 / 1726 -2949 / -2949 Laboratory Tests Past 24 Hrs 04/24/19 05:40 WBC 12.3 H RBC 3.62 L Hgb 10.9 L Hct 33.3 L MCV 92.0 MCH 30.1 MCHC 32.7 RDW 14.0 RDW Differential 45.6 H Plt Count 72 L MPV 10.1 Medical Necessity - Tobacco Use Smoking Status: Never smoker Assessment/Plan All Active Problems (Last Updated 04/20/19 @ 20:21 by Drea Yarbrough MD) 41 weeks gestation of (Acute) POD#2 Primary C/S for failed inductoin Stable postop. Wants to stay Continue care. #2) thrombocytopenia Repeat CBC AM 04/24/19 Continued thrombocytopenia, but minimal dec from last check. Hold Lovenox. / Stop Lovenox.
[2019-04-24] MEDS: Naproxen 250 MG Tablet PO ×2 (13:51→21:53)
[2019-04-24 14:07] VITALS: BP 140/83; PULSE 93; RESP 16; TEMP 36.6
[2019-04-24 19:57] VITALS: BP 142/84; PULSE 98; RESP 18; TEMP 36.4; O2SAT 98
[2019-04-25 02:19] VITALS: BP 137/81; PULSE 94; RESP 20; TEMP 36.6; O2SAT 96
[2019-04-25] MEDS: Acetaminophen 500 MG Tablet 1000 MG PO ×2 (03:46→12:24)
[2019-04-25 08:00] VITALS: BP 140/80; PULSE 89; RESP 18; TEMP 36.6; O2SAT 96
[2019-04-25] MEDS: Naproxen 250 MG Tablet PO (08:10)
--- NOTE | 2019-04-25 08:18 | NURSING ---
Patient denies headache or changes in vision.
--- NOTE | 2019-04-25 08:25 | PCM.PN.OB ---
Patient Problems: Active and Suspected Problems (Last Updated 04/20/19 @ 20:21 by Drea Yarbrough MD) 41 weeks gestation of (Acute) Subjective: POD#3 Primary C/S Still concerned about baby's nursing. Was told to wake to feed about q 2 hrs. Baby too sleepy for this now. A little frustrated. Considering staying until tomorrow. - Physical Exam General: Alert, Oriented x3, Cooperative, No apparent distress HEENT: Atraumatic, EOMI Neck: Supple Abdomen: Soft - Fundus firm minimally tender at umbilicus Skin: Incision - CDI. mepilex remains in place. Neurological: Cranial nerves II-XII grossly intact Psych/Mental Status: Normal Affect Vital Signs Temp Pulse Resp BP Pulse Ox 97.9 F 89 18 140/80 H 96 04/25/19 08:00 04/25/19 08:00 04/25/19 08:00 04/25/19 08:00 04/25/19 08:00 Oxygen Delivery Method Room Air Weight: 114.305 kg Body Mass Index (BMI) 46.0 Intake and Output for Last 24 Hours 04/23/04/24/19 04/25/19 23:59 23:59 23:59 Intake Total 651 / 651 Output Total 3600 / 3600 Balance -2949 / -2949 Medical Necessity - Tobacco Use Smoking Status: Never smoker Assessment/Plan All Active Problems (Last Updated 04/20/19 @ 20:21 by Drea Yarbrough MD) 41 weeks gestation of (Acute) POD#3 Primary C/S for failed inductoin Stable postop. Still with nursing issues. Baby is discharged. Continue care. dischg planned today. RTO in 1-2 wk and then 6 wk for postop / check up. #2) thrombocytopenia but minimal drift and no evidence.
[2019-04-25 13:43] VITALS: BP 136/72; PULSE 96; RESP 18; TEMP 36.3
--- NOTE | 2019-04-25 14:25 | NURSING ---
Discharge teaching provided to both patient and significant other. Discharged at 1350 to home. Infant placed in car seat per parents.
--- NOTE | 2019-04-26 08:15 | PCM.DC.SUM ---
Discharge Date and Diagnosis Date of Admission: 04/20/19 - 41 wk induction high BMI unfavorable cervix Date of Discharge: 04/25/19 - s/p primary C/S for failed induction Hospital Course and Treatment Operations: - - induction to primary C section Summary of Care Provided: The patient is a 38 year old female at 41 + wk for induction of labor with very unfavorable cervix and high BMI. Cytotec induction initiated pm 04/20 to am 04/21 with cervix still very high, unable to place douglas bulb for douglas induction. Pitocin run all day and no change in cervix. Reviewed options, including: primary C Section pm o04/21/19 (declined) vs repeat overnight Cytotec induction. Chose repeat Cytotec induction and continued this pm 04/21 to am 04/22. No progress, no descent. Unable to visualize or palpate cervix to place Douglas bulb. At that point, elected to proceed with primary C/S Failed induction. VERY narrow pelvis. Delivered on 04/22/19 by primary C/S Procedure uneventful with minimal blood loss. Findings: martin viable male unengaged in maternal pelvis Wt 8# 7 oz. Ap 9/9 Postoperative course: Incision CDI. Benign exam. Thrombocytopenia with jhon at 72,000 Hgb preop 13 g/dl Dec to 10.9 g/dl by POD#2 Sent home in stable condition. Benign exam, pain control adequate on POD#3 - Physical Exam Vital Signs Temp Pulse Resp BP Pulse Ox 97.4 F L 96 18 136/72 H 96 04/25/19 13:43 04/25/19 13:43 04/25/19 13:43 04/25/19 13:43 04/25/19 08:00 Oxygen Delivery Method Room Air Weight: 114.305 kg Body Mass Index (BMI) 46.0 Discharge Diet: No Restrictions Discharge Activity: May not drive while taking narcotic pain medications., May Shower, May Take a Tub Bath May resume sexual activity in: 4-6 weeks Additional Activity Instructions:: Nothing in the vagina for 4-6 weeks. You may return to work/school in 6 weeks. Change Dressing in (Days):: 7 Remove Dressing in (days):: 7 Cleanse incision/area with: Soap & Water, Keep Dressing Clean & Dry Home Medications: Medications to take at Discharge Doxylamine Succinate [Unisom] 25 mg PO DAILY PRN PRN 04/20/19 Pantoprazole Sodium [Protonix] 20 mg PO DAILY 04/20/19 Vits [Prenatabs FA] 1 tab PO DAILY 04/20/19 Docusate Sodium [Colace] 100 mg PO BID #30 cap 04/22/19 Naproxen [Naprosyn] 250 - 500 mg PO TID PRN PRN #30 tab 04/22/19 Oxycodone [Oxyir] 5 mg PO Q6H PRN PRN 7 Days #20 tab 04/22/19 Polyethylene Glycol 3350 [Miralax] 17 gm PO DAILY PRN #14 packet 04/22/19 Following Prescrptions Were Given to Patient: Docusate Sodium [Colace] 100 mg PO BID #30 cap Transmission Status: Received by [facility] Polyethylene Glycol 3350 [Miralax] 17 gm PO DAILY PRN #14 packet PRN Reason: Constipation Transmission Status: Received by [facility] Naproxen [Naprosyn] 250 - 500 mg PO TID PRN PRN #30 tab PRN Reason: Mild-Mod Pain (1-510) Transmission Status: Received by [facility] Oxycodone [Oxyir] 5 mg PO Q6H PRN PRN 7 Days #20 tab PRN Reason: Mod-Severe Pain (4-1010) Transmission Status: Received by [facility] Primary Care Physician: Care Physician,No Primary [Primary Care Provider] - Please Follow Up With: Katerina Hess MD - [phone] When: Call to make an appointment for an incision check in 2 weeks. Medical Necessity - Tobacco Use Smoking Status: Never smoker Meaningful Use Info Meaningful Use Diagnoses (Choose all that apply): None applicable
== END 2019-04-25 13:50 | disposition home or self-care (01) | DRG 788 ==
PROVIDERS: Obstetrics & Gynecology; Admitting Provider Obstetrics & Gynecology; Referring Provider Obstetrics & Gynecology; Visit Provider Obstetrics & Gynecology
DX: O48.0 Post-term pregnancy (principal); Z3A.41 41 weeks gestation of pregnancy; O76 Abnormality in fetal heart rate and rhythm complicating labor and delivery; O61.0 Failed medical induction of labor; Z37.0 Single live birth; O72.3 Postpartum coagulation defects; D69.6 Thrombocytopenia, unspecified
CPT/HCPCS: 59025; 59050; 80053; 82570; 84156; 84550; 85025; 85027; 86850; 86900; 99218; J7120; A4216; G0378; J2405

== ENCOUNTER → 2019-06-08 13:21 | Outpatient (CLI) | payer OTHER, SELFPAY ==
[2019-06-08 15:29] LABS: Chlamydia Trachomatis by PCR Negative (Negative); Neisserai gonorrhoeae by PCR Negative (Negative); Probe Check PASS; Sample Adequacy Control PASS; Specimen Processing Control PASS
== END ==
PROVIDERS: Visit Provider Obstetrics & Gynecology
DX: Z30.430 Encounter for insertion of intrauterine contraceptive device (principal); Z11.3 Encounter for screening for infections with a predominantly sexual mode of transmission
CPT/HCPCS: 87491; 87591